=== PATIENT | female | born 1980 | race Caucasian/White ===

== ENCOUNTER 2016-07-10 12:26 | Emergency (ER) | payer SELFPAY ==
[~2016-07-10] VITALS: Ht 162.6 cm; Wt 79.5 kg
[~2016-07-10 12:26] MED LIST: EXCED PO; NAPR-260 PO
[2016-07-10 12:50] VITALS: Ht 162.6 cm; Wt 79.5 kg
== END 2016-07-10 16:18 | disposition left against medical advice (07) ==
LOC: FTE 12:26
DX: Z53.21 Procedure and treatment not carried out due to patient leaving prior to being seen by health care provider (principal)

== ENCOUNTER 2016-10-09 21:43 | Emergency (ER) | payer MEDICAID ==
[~2016-10-09] VITALS: Ht 167.6 cm; Wt 80.0 kg
[2016-10-09 21:46] VITALS: Ht 167.6 cm; Wt 80.0 kg
[2016-10-09] MEDS ORDERED: KETOROLAC 60 MG INJ IM STA (22:08)
[2016-10-09] MEDS ORDERED: FLUT9.9S NASAL (23:08)
[2016-10-09] MEDS ORDERED: IBUP-1542 PO (23:08)
[2016-10-09] MEDS ORDERED: SODI126M NASAL (23:08)
[2016-10-09 23:15] VITALS: BP 125/68; PULSE 71; RESP 17
--- NOTE | 2016-10-10 00:13 | ERD ---
ER Documentation Chief Complaint Date/Time DATE: 10/10/16 TIME: 00:03 Chief Complaint headache x 2 days HPI 36-year-old female complaining of right-sided headache 2 days. The headache is constant, pressure-like. Patient states that it feels like her head is about to explode. The headache is worse when she leans her head forward. She has similar headaches in the past. She took Advil 1 hour ago and he had not helped. She reports photophobia, but no blurry vision. Denies nausea or vomiting. Denies fever or chills. Denies any one-sided numbness or weakness. ROS All systems reviewed and are negative except as per history of present illness. Medications Home Meds Active Scripts Fluticasone Propionate (Flonase Allergy Relief) 9.9 Ml Bearden.susp, 1 SPRAY NASAL BID, #1 BOTTLE TO EACH NOSTRIL Prov:NAIN MARINELLI NP 10/09/16 Sodium Chloride (Saline Nasal Mist) 126 Ml Mist, 2 SPRAY NASAL Q2H Y for NASAL CONGESTION, #1 BOTTLE Prov:NAIN MARINELLI. NANCIE 10/09/16 Ibuprofen* (Motrin*) 600 Mg Tab, 600 MG PO Q6H Y for PAIN AND OR ELEVATED TEMP, #30 TAB Prov:NAIN MARINELLI. BALLING HEAD TENDER 10/09/16 Naproxen* (Naprosyn*) 500 Mg Tablet, 500 MG PO BID Y for PAIN AND/OR INFLAMMATION, #30 TAB Prov:SHREE CUENCA PA-C 12/06/15 Acetaminophen/Aspirin/Caffeine* (Excedrin*) 1 Tab Tab, 2 TAB PO Q6 for 10 Days, TAB Prov:SHREE CUENCA PA-C 12/06/15 Allergies Allergies: Coded Allergies: No Known Allergy (Unverified , 12/06/15) PMhx/Soc Medical and Surgical Hx: pt denies Medical Hx, pt denies Surgical Hx Hx Alcohol Use: No Hx Substance Use: No Hx Tobacco Use: No Smoking Status: Never smoker Physical Exam Vitals Vital Signs Date Time Temp Pulse Resp B/P Pulse Ox O2 Delivery O2 Flow Rate FiO2 10/09/16 23:15 71 17 125/68 95 Room Air 10/09/16 21:46 98.8 80 20 151/84 98 Physical Exam General: Well-developed, well-nourished, conscious and coherent, in no distress Skin: Warm and dry without rash, good texture and turgor Head: Normocephalic without evidence of trauma Eyes: Sclera and conjunctivae normal; pupils equal, round, and reactive to light; extraocular movements are intact Nose/Face: Right nasal mucosa erythematous and swollen. Right frontal sinus tender to percussion. Neck: Supple without meningismus or adenopathy. Carotids are equal. Trachea midline. No bruits or JVD Chest: Normal AP diameter. Good expansion without retractions. Nontender. Lungs are clear to auscultate bilaterally with good tidal volume Heart: Regular rate and rhythm. No murmur, rub, or gallops heard Extremities: Full range of motion. Good strength bilaterally. No clubbing, cyanosis, or edema. Peripheral pulses are intact. Sensation intact Neuro: Alert and oriented 4, GCS 15. Cranial nerves grossly intact. Motor and sensory exams nonfocal. Moves all extremities. Speech clear. Gait normal Results 24 hrs Current Medications Medications (Trade) Dose Ordered Sig/Johnathon Route PRN Reason Start Time Stop Time Status Last Admin Dose Admin Ketorolac Tromethamine (Toradol) 60 mg ONCE STAT IM 10/09/16 22:08 10/09/16 22:10 DC 10/09/16 22:24 Procedures/MDM 36-year-old female presented ED with headache 2 days. Her history exam findings are consistent with sinus headache. Differentials include but not limited to migraine, cluster headache, tension headache, sinus or dental infection, TMJ syndrome, pseudotumor cerebri, meningitis, encephalitis, giant cell arteritis, glaucoma, subarachnoid hemorrhage, subdural or epidural hematoma , intracranial bleeding or tumor. Toradol given to the patient in the ED for pain. Patient reports market improvement after Toradol. Patient appears well, stable for discharge and outpatient management. Medical decision making shared with patient and family. Education provided to patient and family. Patient and family expressed understanding of the plan. Medications on discharge: Ibuprofen, saline nasal spray, Flonase. Follow-up: Primary care provider in 2-3 days or return to ED if worse. Disclaimer: Inadvertent spelling and grammatical errors are likely due to EHR/ dictation software use and do not reflect on the overall quality of patient care. Also, please note that the electronic time recorded on this note does not necessarily reflect the actual time of the patient encounter. Departure Diagnosis: Primary Impression: Sinus headache Condition: Good Patient Instructions: Sinus Headaches [facility] Usted se langley hecho un examen mdico de control que le indica que no est en venessa condicin que requiera tratamiento urgente en el Departamento de Emergencia. Un estudio ms profundo y el tratamiento de quiñones condicin pueden esperar sin ningn riesgo hasta que usted sea atendida/o en el consultorio de quiñones mdico o venessa cl veronica. Es responsabilidad suya arreglar venessa hilario para el seguimiento del gudelia. MANEJO DE CONDICIONES NO URGENTES EN EL FUTURO 1) Si usted tiene un mdico de atencin primaria: Usted debera llamar a quiñones mdico de atencin primaria antes de venir al departamento de emergencia. Despus de las horas de consultorio, quiñones doctor o quiñones asociado/a est disponible por telfono. El mdico o enfermero de armando en el servicio telefnico puede asesorarle por aliyah medio para atender el problema, o gudelia contrario se puede programar venessa hilario. 2) Si usted no tiene un mdico de atencin primaria: Llame al mdico o clnica de referencia que aparece abajo carlos eduardo las horas de consultorio para hacer venessa hilario para que le vean. CLINICAS: [facility] [phone] [facility] [phone] [facility] [phone] [address] [facility] [facility] [phone] [facility] [phone] [address] [facility] [phone] [place] Additional Instructions: Llame al doctor MAANA y melodie venessa HILARIO PARA DENTRO DE 2-3 LOPES.Dgale a la secretaria que nosotros le instruimos hacer esta hilario.Avise o llame si quiñones condicin se empeora antes de la hilario. Regresa aqui si peor o no mejor. NAIN MARINELLI NP Oct 10, 2016 00:12
== END 2016-10-09 23:16 | disposition home or self-care (01) ==
LOC: FTE 21:43
DX: R51 Headache (principal)
CPT/HCPCS: 96372; J1885; Z7502

== ENCOUNTER 2017-05-16 09:59 | Emergency (ER) | END 2017-05-16 11:32 | disposition home or self-care (01) ==

== ENCOUNTER 2017-09-01 09:28 | Emergency (ER) | END 2017-09-01 12:19 | disposition home or self-care (01) ==

== ENCOUNTER 2017-09-16 19:05 | Emergency (ER) | END 2017-09-16 22:53 | disposition home or self-care (01) ==

== ENCOUNTER 2018-08-22 09:07 | Emergency (ER) | payer MEDICAID ==
[~2018-08-22] VITALS: Ht 160 cm; Wt 72.0 kg
[~2018-08-22 09:07] MED LIST changes: +AMOX500C2 PO; +BENZ-6 PO; +CETI10CA PO; +FLUT9.9S NASAL; +GUAI5SYR2 PO; +IBUP-1542 PO; -NAPR-260 PO; +NAPR-985 PO; +PRED20TA PO; +SODI126M NASAL
[2018-08-22 09:13] VITALS: Ht 160 cm; Wt 72.0 kg
[2018-08-22] MEDS ORDERED: SOD CHLORIDE 0.9% 500 ML IV STA (09:46)
[2018-08-22] MEDS ORDERED: ONDANSETRON 4 MG INJ IV STA (09:46)
[2018-08-22] MEDS ORDERED: FAMOTIDINE 20 MG INJ IV ONE (10:00)
[2018-08-22] MEDS ORDERED: CEFTRIAXONE 1 GM/50 ML (PMX) 50 ML IVPB ONE (11:00)
[2018-08-22] MEDS ORDERED: CEPH-443 PO (11:22)
[2018-08-22] MEDS ORDERED: IBUP-1542 PO (11:22)
[2018-08-22] MEDS ORDERED: TAMS-14 PO (11:22)
[2018-08-22] MEDS ORDERED: ONDA4TAB14 PO (11:23)
[2018-08-22 11:48] VITALS: BP 118/69; PULSE 58; RESP 18
--- NOTE | 2018-08-22 12:47 | ERD ---
ER Documentation Chief Complaint Chief Complaint mid Abdominal pain with n/v x 2 days HPI 38-year-old female patient with no significant past medical history presents to ED complaining of left-sided abdominal pain that started about 2 days ago. Describes her pain as burning, aching and rates it an 8 out of 10. States that sometimes the pain extends to her left flank region. Reports that she had 2 episodes of nonbilious nonbloody vomiting. States her last menstruation was on May 31, 2018. Reports that the pain is also worse with eating and she has some dysuria as well as hematuria. Denies any chest pain, shortness of breath, diarrhea, constipation, neck stiffness. ROS All systems reviewed and are negative except as per history of present illness. Medications Home Meds Active Scripts Ondansetron (Ondansetron Odt) 4 Mg Tab.rapdis, 4 MG PO Q6H PRN for NAUSEA AND/OR VOMITING, #10 TAB Prov:ALYX CHRISTIAN PA-C 08/22/18 Tamsulosin Hcl* (Flomax*) 0.4 Mg Cap.er.24h, 0.4 MG PO QPM, #30 CAP Prov:ALYX CHRISTIAN PA-C 08/22/18 Ibuprofen* (Motrin*) 600 Mg Tab, 600 MG PO Q6, #30 TAB Prov:ALYX CHRISTIAN PA-C 08/22/18 Cephalexin* (Keflex*) 500 Mg Capsule, 500 MG PO QID for 10 Days, CAP Prov:ALYX CHRISTIAN PA-C 08/22/18 Naproxen* (Naprosyn*) 500 Mg Tablet, 500 MG PO BID PRN for PAIN AND/OR INFLAMMATION, #30 TAB Prov:NISHANT HINDS PA-C 09/16/17 Cetirizine Hcl* (Zyrtec*) 10 Mg Capsule, 10 MG PO DAILY, #10 TAB.CHEW Prov:CM GALINDO PA-C 09/01/17 Guaifenesin-Dextromethorphan* (Robitussin* DM) 100MG/10MG/5ML Syrup, 5 ML PO Q4H PRN for COUGH, #4 OZ Prov:CM GALINDO PA-C 09/01/17 Benzonatate* (Tessalon Perle*) 100 Mg Capsule, 100 MG PO Q8H PRN for COUGH, #20 CAP Prov:CM GALINDO-C 09/01/17 Ibuprofen* (Motrin*) 600 Mg Tab, 600 MG PO Q6, #30 TAB Prov:JOSIECM-C 09/01/17 Ibuprofen* (Motrin*) 600 Mg Tab, 600 MG PO Q6, #30 TAB Prov:ALYX CHRISTIANC 05/16/17 Prednisone* (Prednisone*) 20 Mg Tab, 40 MG PO DAILY for 5 Days, TAB Prov:ALYX CHRISTIANC 05/16/17 Amoxicillin* (Amoxicillin*) 500 Mg Cap, 500 MG PO BID for 10 Days, CAP Prov:ALYX CHRISTIANC 05/16/17 Fluticasone Propionate (Flonase Allergy Relief) 9.9 Ml Adams.susp, 1 SPRAY NASAL BID, #1 BOTTLE TO EACH NOSTRIL Prov:NAIN MARINELLI. ANALYTICAL TECHNICIAN 10/09/16 Sodium Chloride (Saline Nasal Mist) 126 Ml Mist, 2 SPRAY NASAL Q2H PRN for NASAL CONGESTION, #1 BOTTLE Prov:NAIN MARINELLI. ANALYTICAL TECHNICIAN 10/09/16 Ibuprofen* (Motrin*) 600 Mg Tab, 600 MG PO Q6H PRN for PAIN AND OR ELEVATED TEMP, #30 TAB Prov:NAIN MARINELLI. ANALYTICAL TECHNICIAN 10/09/16 Naproxen* (Naprosyn*) 500 Mg Tablet, 500 MG PO BID PRN for PAIN AND/OR INFLAMMATION, #30 TAB Prov:SHREE CUENCA PA-C 12/06/15 Acetaminophen/Aspirin/Caffeine* (Excedrin*) 1 Tab Tab, 2 TAB PO Q6 for 10 Days, TAB Prov:SHREE CUENCAC 12/06/15 Allergies Allergies: Coded Allergies: No Known Allergy (Unverified , 12/06/15) PMhx/Soc History of Surgery: Yes ( x3 ) Anesthesia Reaction: No Hx Neurological Disorder: No Hx Respiratory Disorders: No Hx Cardiac Disorders: No Hx Psychiatric Problems: No Hx Miscellaneous Medical Probl: No Hx Alcohol Use: No Hx Substance Use: No Hx Tobacco Use: No FmHx Family History: No diabetes, No coronary disease Physical Exam Vitals Vital Signs Date Temp Pulse Resp B/P (MAP) Pulse Ox O2 O2 Flow FiO2 Time Delivery Rate 08/22/18 98.0 58 18 118/69 99 Room Air 11:48 (85) 08/22/18 97.8 69 18 130/71 98 09:13 (90) Physical Exam Const: [id number], well-nourished. In no acute distress. Head: Atraumatic, normocephalic Eyes: Normal Conjunctiva without injection. No purulent discharge. ENT: Normal external ear, nose. Moist oropharynx without tonsillar exudates. Non-erythematous pharynx. Uvula midline. No drooling. No trismus. Neck: No cervical midline tenderness. Full range of motion. No meningismus. No cervical lymphadenopathy. No JVD. Resp: Clear to auscultation bilaterally. No wheezing, rhonchi, rales, or crackles. No accessory muscle use. No retractions. Cardio: Regular rate and rhythm. No murmurs, rubs or gallops. Abd: Soft, mid left abdominal tenderness, non distended. Normal bowel sounds. No palpable masses. No rebound tenderness. No guarding. Negative McBurney's point. Negative psoas sign. Negative obturator sign. Skin: No petechiae or purpura. Back: No midline tenderness. No CVA tenderness. Ext: No cyanosis, or edema. Neur: Awake and alert. Normal gait. Normal coordination. Psych: Normal Mood and Affect Result Diagram: 08/22/18 1004 08/22/18 1004 Results 24 hrs Laboratory Tests Test 08/22/18 09:59 08/22/18 10:03 08/22/18 10:04 Urine Color RED Urine Clarity CLOUDY Urine pH 8.0 Urine Specific [place] 1.021 Urine Ketones NEGATIVE mg/dL Urine Nitrite NEGATIVE mg/dL Urine Bilirubin NEGATIVE mg/dL Urine Urobilinogen NEGATIVE mg/dL Urine Leukocyte Esterase NEGATIVE Arturo/ul Urine Microscopic RBC > 182 /HPF Urine Microscopic WBC 106 /HPF Urine Squamous Epithelial Cells FEW /HPF Urine Bacteria MODERATE /HPF Urine Mucus FEW /HPF Urine Hemoglobin 3+ mg/dL Urine Glucose NEGATIVE mg/dL Urine Total Protein 2+ mg/dl POC Beta HCG, Qualitative NEGATIVE White Blood Count 6.1 10^3/ul Red Blood Count 3.95 10^6/ul Hemoglobin 12.9 g/dl Hematocrit 38.4 % Mean Corpuscular Volume 97.2 fl Mean Corpuscular Hemoglobin 32.7 pg Mean Corpuscular 33.6 g/dl Hemoglobin Concent Red Cell Distribution Width 12.3 % Platelet Count 298 10^3/UL Mean Platelet Volume 8.8 fl Immature Granulocytes % 0.200 % Neutrophils % 56.9 % Lymphocytes % 33.5 % Monocytes % 7.8 % Eosinophils % 1.3 % Basophils % 0.3 % Nucleated Red Blood Cells % 0.0 /100WBC Immature Granulocytes # 0.010 10^3/ul Neutrophils # 3.5 10^3/ul Lymphocytes # 2.1 10^3/ul Monocytes # 0.5 10^3/ul Eosinophils # 0.1 10^3/ul Basophils # 0.0 10^3/ul Nucleated Red Blood Cells # 0.0 10^3/ul Sodium Level 142 mmol/L Potassium Level 3.9 mmol/L Chloride Level 107 mmol/L Carbon Dioxide Level 27 mmol/L Anion Gap 8 Blood Urea Nitrogen 14 mg/dl Creatinine 0.59 mg/dl Est Glomerular Filtrat > 60 mL/min Rate mL/min Glucose Level 90 mg/dl Calcium Level 8.8 mg/dl Total Bilirubin 0.5 mg/dl Direct Bilirubin 0.00 mg/dl Indirect Bilirubin 0.5 mg/dl Aspartate Amino 21 IU/L Transf (AST/SGOT) Alanine 17 IU/L Aminotransferase (ALT/SGPT) Alkaline Phosphatase 52 IU/L Total Protein 8.4 g/dl Albumin 4.4 g/dl Globulin 4.00 g/dl Albumin/Globulin Ratio 1.10 Lipase 142 U/L Current Medications Medications Dose Sig/Johnathon Start Time Status Last (Trade) Ordered Route PRN Stop Time Admin Dose Reason Admin Sodium 500 ml @ Q1H STAT 08/22/18 DC 08/22/18 Chloride 500 mls/hr IV 09:46 10:11 08/22/18 10:45 Ondansetron 4 mg ONCE STAT 08/22/18 DC 08/22/18 HCl (Zofran IV 09:46 10:08 Inj) 08/22/18 09:48 Famotidine 20 mg ONCE ONCE 08/22/18 DC 08/22/18 (Pepcid Iv) IV 10:00 10:08 08/22/18 10:01 Ceftriaxone 50 ml @ ONCE ONCE 08/22/18 DC 08/22/18 Sodium 100 mls/hr IVPB 11:00 11:07 08/22/18 11:29 Procedures/MDM 38-year-old female patient with no significant past medical is history presents to the ED complaining of abdominal pain that started 2 days ago associated with hematuria and dysuria. Patient is afebrile and nontoxic-appearing. Patient was further worked up with CBC, CMP, lipase, UA, CT of the abdomen and pelvis without contrast. Patient's pain and symptoms have improved after treatment with the 20 mg IV famotidine, 4 mg IV Zofran, 1 L of normal saline. CBC: No leukocytosis. No e/o of systemic infection. No e/o anemia. CMP: No e/o severe acidosis, alkalosis, renal failure, diabetic ketoacidosis, liver disease Lipase within normal limits. Urine: No leukocyte esterase, no nitrites, 3+ hematuria. WBC noted. Urine : Negative IMPRESSION: 1. Nonobstructing 3 mm stone in the upper pole left kidney. 2. Otherwise unremarkable noncontrast CT abdomen and pelvis without acute pathology identified. Patient noted to have a nonobstructing 3 mm stone in the upper pole left kidney. No leukocytosis. BUN and creatinine within normal limits. Discussed antibiotic choice with patient, stated that she would like to try Keflex instead of ciprofloxacin due to the side effects. Low suspicion for septic renal stone, ectopic , ovarian torsion, gastritis, GERD, peptic ulcer disease, cholecystitis, choledocholithiasis, cholangitis, pancreatitis, appendicitis, bowel obstruction, ileus, volvulus, nephrolithiasis, pyelonephritis, hepatitis, perforated viscus, diverticulitis, strangulated/incarcerated hernia, DKA, acute abdomen, mesenteric ischemia or other emergent conditions. Discussed with Dr. Gray who agreed with the management and discharge plan. Diagnosis: Abdominal pain Discharge medications: Zofran, Ibuprofen, Tamsulosin, Zofran Follow up with primary care physician in 1-2 days for referral to oracle business analyst. Instructed patient to return to the ED sooner for any worsening symptoms. Patient's questions were answered. Patient understood and agreed with discharge plan. Patient discharged stable. Departure Diagnosis: Primary Impression: Abdominal pain Abdominal location: unspecified location Qualified Codes: R10.9 - Unspecified abdominal pain Condition: Stable Patient Instructions: Urinary Tract Infections in Women, Identifying Kidney Stones, Preventing Kidney Stones, Kidney Stone W/ Colic Referrals: [facility] YOU HAVE RECEIVED A MEDICAL SCREENING EXAM AND THE RESULTS INDICATE THAT YOU DO NOT HAVE A CONDITION THAT REQUIRES URGENT TREATMENT IN THE EMERGENCY DEPARTMENT. FURTHER EVALUATION AND TREATMENT OF YOUR CONDITION CAN WAIT UNTIL YOU ARE SEEN IN YOUR DOCTORS OFFICE WITHIN THE NEXT 1-2 DAYS. IT IS YOUR RESPONSIBILITY TO M YAHAIRA AN APPOINTMENT FOR FOLOW-UP CARE. IF YOU HAVE A PRIMARY DOCTOR --you should call your primary doctor and schedule an appointment IF YOU DO NOT HAVE A PRIMARY DOCTOR YOU CAN CALL OUR PHYSICIAN REFERRAL HOTLINE AT IF YOU CAN NOT AFFORD TO SEE A PHYSICIAN YOU CAN CHOSE FROM THE FOLLOWING [facility] [address] [facility] [address] [facility] [address] [facility] [address] [facility] [address] [facility]. [facility] [address] [facility]. [facility] YOU HAVE RECEIVED A MEDICAL SCREENING EXAM AND THE RESULTS INDICATE THAT YOU DO NOT HAVE A CONDITION THAT REQUIRES URGENT TREATMENT IN THE EMERGENCY DEPARTMENT. FURTHER EVALUATION AND TREATMENT OF YOUR CONDITION CAN WAIT UNTIL YOU ARE SEEN IN YOUR DOCTORS OFFICE WITHIN THE NEXT 1-2 DAYS. IT IS YOUR RESPONSIBILITY TO MAKE AN APPOINTMENT FOR FOLOW-UP CARE. IF YOU HAVE A PRIMARY DOCTOR --you should call your primary doctor and schedule and appointment IF YOU DO NOT HAVE A PRIMARY DOCTOR YOU CAN CALL OUR PHYSICIAN REFERRAL HOTLINE AT . IF YOU CAN NOT AFFORD TO SEE A PHYSICIAN YOU CAN CHOSE FROM THE FOLLOWING [facility]: [facility] [address] [place] [address] [facility] [address] [place] [address] [facility] [address] [place] [address] [facility] Additional Instructions: Llame al doctor JACKELIN y melodie venessa HILARIO PARA DENTRO DE 2-3 LOPES para hacer un seguimiento con el urlogo.Dgale a la secretaria que nosotros le instruimos hacer esta hilario.Avise o llame si quiñones condicin se empeora antes de la hilario. Regresa aqui si peor o no mejor. ALYX CHRISTIAN PA-C August 22, 2018 12:47
== END 2018-08-22 11:49 | disposition home or self-care (01) ==
LOC: FTE 09:07
DX: R10.9 Unspecified abdominal pain (principal)
CPT/HCPCS: 36415; 74176; 80053; 81001; 81025; 83690; 85025; 96361; 96365; 96375; J0696; J2405; J7040; Z7502; Z7610